=== PATIENT | male | born 1980 | race Caucasian/White ===

== ENCOUNTER 2020-01-15 15:39 | Emergency (ER) | payer SELFPAY ==
[~2020-01-15] VITALS: Ht 182.9 cm; Wt 75.0 kg
[2020-01-15 15:56] VITALS: BP 136/80
[2020-01-15] MEDS ORDERED: KEFLEX500 M1 PO (16:11)
== END 2020-01-15 16:20 | disposition home or self-care (01) | DRG 607 ==
LOC: EDBD 15:39 → ED 15:39
DX: S90.465A Insect bite (nonvenomous), left lesser toe(s), initial encounter (principal); F17.210 Nicotine dependence, cigarettes, uncomplicated; L08.9 Local infection of the skin and subcutaneous tissue, unspecified; W57.XXXA Bitten or stung by nonvenomous insect and other nonvenomous arthropods, initial encounter

== ENCOUNTER 2020-11-05 11:11 | Emergency (ER) | payer SELFPAY ==
[~2020-11-05] VITALS: Ht 182.9 cm; Wt 75.0 kg
[~2020-11-05 11:11] MED LIST: KEFLEX500 M1 PO
[2020-11-05] MEDS ORDERED: BACTRIM DS1 TAB PO (12:16)
[2020-11-05 12:33] VITALS: BP 136/80
== END 2020-11-05 12:39 | disposition home or self-care (01) | DRG 603 ==
LOC: ED 11:11
DX: L02.214 Cutaneous abscess of groin (principal); F17.210 Nicotine dependence, cigarettes, uncomplicated